=== PATIENT | female | born 1940 | race Caucasian/White ===

== ENCOUNTER 2020-05-04 05:25 | Inpatient (IN) | payer MEDICARE, MEDICAID ==
[~2020-05-04] VITALS: Ht 160 cm; Wt 104.8 kg
[2020-05-04] MEDS ORDERED: RT-HYPERTONIC SALINE 3% 4 ML NEB IH STA (05:45)
[2020-05-04] MEDS ORDERED: RT-epiNEPHrine (RACEMIC) 2.25% 0.5 ML VIAL INH ONE (05:45)
[2020-05-04] MEDS ORDERED: FAMOTIDINE 20MG/2ML IV (PEPCID) IVP ONE (06:15)
--- NOTE | 2020-05-04 06:39 | ED General ---
General Chief Complaint: Allergic Reaction Stated Complaint: POSS ALLERGY REACTION Source of Information: Patient History of Present Illness Date Seen by Provider: May 04, 2020 Time Seen by Provider: 05:30 Initial Comments Patient is a 79-year-old female halfway resident who presents with acute tongue and airway swelling. Symptoms began at 3:00 when patient woke from sleep with a fullness in her mouth and difficulty swallowing water. Symptoms gradually progressed over the past 2 hours and EMS was contacted. Patient given Solu- Medrol, Benadryl and subcutaneous epinephrine per EMS. Patient reports partial improvement of symptoms. She is able to speak, he'll her secretions and is non- stridorous. She is not wheezing, or short of breath. She reports feeling anxious and tremulous from the epinephrine treatment but denies chest pain. Patient has a history of hypertension hypothyroidism and congestive heart failure. Medication list is not available. She denies known medication allergies. No known new food exposures or medications. Timing/Duration: 4-6 Hours Severity: Mild Modifying Factors: improves with Other Associated Systoms: Other Allergies and Home Medications Allergies Coded Allergies: No Known Drug Allergies (Unverified , 05/04/20) Patient Home Medication List Home Medication List Reviewed: Yes Review of Systems Review of Systems Constitutional: see HPI EENTM: see HPI Respiratory: see HPI Cardiovascular: see HPI Gastrointestinal: see HPI Genitourinary: see HPI : Yes Musculoskeletal: see HPI Skin: see HPI Psychiatric/Neurological: See HPI Hematologic/Lymphatic: See HPI Immunological/Allergic: see HPI All Other Systems Reviewed Negative Unless Noted: Yes Past Atdrqat-Iabgnj-Aynsul Hx Past Med/Social Hx: Reviewed Nursing Past Med/Soc Hx Patient Social History Recent Hopitalizations: No Seasonal Allergies Seasonal Allergies: Yes Past Medical History Section Physical Exam Vital Signs Capillary Refill : Height, Weight, BMI Height: '" Weight: lbs. oz. kg; BMI Method: General Appearance: Other Eyes: Bilateral Eye Normal Inspection, Bilateral Eye PERRL, Bilateral Eye EOMI HEENT: PERRL/EOMI, Normal ENT Inspection, Pharynx Normal, Other (lingual and sublingual swelling. No appreciated posterior pharyngeal swelling. Patient able to swallow secretions. Minimal up and face swelling.) Respiratory: Chest Non Tender, Lungs Clear Cardiovascular: Irregularly Irregular, Other Gastrointestinal: Non Tender, Soft Extremity: Pedal Edema Skin: Normal Color Focused Exam Sepsis Stage: Ruled Out Progress/Results/Core Measures Suspected Sepsis SIRS Temperature: Pulse: Respiratory Rate: Blood Pressure / Mean: Results/Orders My Orders Orders - GÓMEZ QURESHI DO Cbc No Diff (05/04/20 05:40) Comprehensive Metabolic Panel (05/04/20 05:40) Rt Epinephrine (Racemic Epinephrine 2.25 (05/04/20 05:45) Hypertonic Saline 3% Neb (Rt-Hypertonic (05/04/20 05:45) Svn Small Volume Nebulizer (05/04/20 05:45) Ekg Tracing (05/04/20 05:53) Magnesium (05/04/20 05:54) Probnp Fs (05/04/20 05:54) Troponin I Fs (05/04/20 05:54) Famotidine Injection (Pepcid Injection) (05/04/20 06:15) Medications Given in ED Current Medications Medications Dose Ordered Sig/Yadiel Route Start Time Stop Time Status Last Admin Dose Admin Epinephrine 0.5 ml ONCE ONCE INH 05/04/20 05:45 05/04/20 05:49 DC 05/04/20 06:11 0.5 ML Famotidine 40 mg ONCE ONCE IVP 05/04/20 06:15 05/04/20 06:16 DC 05/04/20 06:10 40 MG Vital Signs/I&O Capillary Refill : Departure Communication (Admissions) Patient given Pepcid and racemic epinephrine on ED arrival. She is able to maintain her secretions and is non-stridorous. Medication list is not immediately available to reference to identify what may have caused this reaction. Patient will require admission and close observation at [facility]. She is currently stable for transfer by EMS who instructed to have epinephrine available should she experience airway compromise during transportation. Case was reviewed and future treatment plan was discussed in detail with Dr. Sibley on-call physician with FFP to administered after arrival to [place]. Impression Primary Impression: Angioedema Disposition: 01 HOME, SELF-CARE Condition: Stable Admissions Decision to Admit Reason: Admit from ER (General) Decision to Admit/Date: May 04, 2020 Time/Decision to Admit Time: 06:15 Departure-Patient Inst. Decision time for Depature: 06:40 Referrals: FILOMENA CAZARES MD (PCP/Family) Primary Care Physician Patient Instructions: Angioedema (DC) GÓMEZ QURESHI DO May 04, 2020 06:39
[2020-05-04 07:11] LABS: HEMOGLOBIN 11.8 G/DL (11.5-16.0); MEAN PLATELET VOLUME 11.9 FL (7.4-10.4); WHITE BLOOD COUNT 14.8 10^3/uL (4.3-11.0)
[2020-05-04 07:37] LABS: BUN/CREATININE RATIO 24; CARBON DIOXIDE 25 MMOL/L (21-32); CHLORIDE 104 MMOL/L (98-107); CREATININE SERUM 1.61 MG/DL (0.60-1.30); GFR ESTIMATED 31; POTASSIUM 4.2 MMOL/L (3.6-5.0); SODIUM 141 MMOL/L (135-145)
[2020-05-04 07:38] LABS: ALANINE AMINOTRANSFERASE 12 U/L (0-55); ALBUMIN 3.7 GM/DL (3.2-4.5); ALKALINE PHOSPHATASE 95 U/L (40-136); BILIRUBIN,TOTAL 0.4 MG/DL (0.1-1.0); GLUCOSE 144 MG/DL (70-105); MAGNESIUM 1.6 MG/DL (1.6-2.4); TOTAL PROTEIN 6.7 GM/DL (6.4-8.2)
--- NOTE | 2020-05-04 08:02 | Pulmonary Consultation ---
History of Present Illness History of Present Illness Date Seen by Provider: May 04, 2020 Time Seen by Provider: 07:57 Date of Admission Allergies and Home Medications Allergies Coded Allergies: No Known Drug Allergies (Unverified , 05/04/20) Past Liiahyo-Vvhgxg-Icpcwg Hx Past Med/Social Hx: Reviewed Nursing Past Med/Soc Hx Patient Social History Recent Infectious Disease Expo: No Recent Hopitalizations: No Seasonal Allergies Seasonal Allergies: Yes Past Medical History Section Sepsis Event Evaluation Height, Weight, BMI Height: '" Weight: lbs. oz. kg; 34.00 BMI Method: Exam Exam Vital Signs Date Time Temp Pulse Resp B/P (MAP) Pulse Ox O2 Delivery O2 Flow Rate FiO2 05/04/20 06:40 36.9 81 22 140/83 (102) 98 05/04/20 05:38 36.9 81 22 140/83 (102) 98 Nasal Cannula Height & Weight Height: '" Weight: lbs. oz. kg; 34.00 BMI Method: General Appearance: Other HEENT: PERRL/EOMI, Normal ENT Inspection, Pharynx Normal, Other (lingual and sublingual swelling. No appreciated posterior pharyngeal swelling. Patient able to swallow secretions. Minimal up and face swelling.) Respiratory: Chest Non Tender, Lungs Clear Cardiovascular: Irregularly Irregular, Other Capillary Refill: Less Than 3 Seconds Extremity: Pedal Edema Skin: Normal Color Results Lab Laboratory Tests 05/04/20 05:30 Assessment/Plan Assessment/Plan Angioedema -Currently on 2 liters NC -S/p epi, 125 solumedrol, benedryl and pepcid -Will give 2 units of FFP No prior episodes, unknown cause ARF -LR at 125 cc/hr WILLIAM CAO DO May 04, 2020 08:02
[2020-05-04] MEDS ORDERED: EPINEPHrine INJECTION 1 MG/ML AMP IM PRN (08:15)
[2020-05-04] MEDS ORDERED: NS IV 500 ML 500 ML IV SCH (08:15)
--- NOTE | 2020-05-04 08:39 | Diagnostic Imaging Report ---
Clinical indication: Patient with shortness of breath. Exam: Portable chest x-ray upright view. Comparisons: None. Findings: Lungs/pleura: There is minimal atelectasis or scarring in both lung bases. Otherwise, lungs are clear. There is no pneumothorax. There is no pleural effusion. Mediastinum: Unremarkable. Pulmonary vasculature: Unremarkable. Heart: There is mild cardiomegaly. Bones/extrathoracic soft tissue: There are degenerative spurs involving the thoracic spine. Impression: 1: There is mild cardiomegaly with no significant pulmonary vascular congestion. 2: Otherwise, there is no radiographic evidence of acute cardiopulmonary process. There is mild bibasilar atelectasis or scarring. Dictated by: Dictated on workstation # [id number]
[2020-05-04] MEDS ORDERED: FAMOTIDINE 20MG/2ML IV (PEPCID) IVP SCH (09:00)
[2020-05-04] MEDS ORDERED: ALLO100T PO (09:33)
[2020-05-04] MEDS ORDERED: LEVO112T55 PO (09:33)
[2020-05-04] MEDS ORDERED: ATOR20TA66 PO (09:33)
[2020-05-04] MEDS ORDERED: LISI-552 PO (09:33)
[2020-05-04] MEDS ORDERED: ACET-2267 PO (09:33)
[2020-05-04] MEDS ORDERED: VERA80TA4 PO (09:33)
[2020-05-04] MEDS ORDERED: METF-397 PO (09:34)
--- NOTE | 2020-05-04 09:35 | NUR ---
MED REC WAS ENTERED USING THE PHARMACY ORDER FROM [facility] IN [place]. METFORMIN 500MG IS SHOWN ON THE EXT MED HISTORY BUT IS NOT LISTED ON THE MED LIST FROM [facility]- I CALLED THE FACILITY AND WAS TOLD THE PT IS TAKING METFORMIN 500MG BID OF 04-02-2020 AND HER MED LIST HAS NOT BEEN UPDATED TO REFLECT THAT ADDITION
--- NOTE | 2020-05-04 10:22 | History & Physical-Hospitalist ---
YAZMIN LAMAS MED STUDENT 05/04/20 1022: History of Present Illness HPI/Chief Complaint CC: Angioedema, allergic reaction HPI: Rosa Isela is a 79yoWF fpc resident who presented to [place] ED early this morning with facial, throat and tongue swelling, difficulty breathing, and inability to maintain oral secretions. Last night she had diarrh ea around 11 PM and woke up at 3 AM with progressive facial edema, dysphagia and dyspnea which progressed over the next 2 hours until EMS was called by nursing staff. She was given epinephrine, Benadryl and Solumedrol and transferred to [facility] ICU. She continued to receive medications administered in ER and also 2 units of FFP. By mid-morning her swelling has subsided, secretions are maintained and she has no dyspnea. Pt hx includes HTN, CHF, hypothyroidism and gout but she is a poor historian and is not familiar with her medications. Pharmacy will be consulted. Pt denies prior allergic reactions and denies new food, drink, or medication. Cardiology will be consulted to change medication and address possible TYLER inhibitor angioedema. Source: patient Exam Limitations: no limitations Date Seen 05/04/20 Time Seen by a Provider: 08:45 Attending Physician Maria Isabel Sibley Pankaj K MD Referring Physician Date of Admission May 04, 2020 at 07:39 Home Medications & Allergies Home Medications Reviewed patient Home Medication Reconciliation performed by pharmacy medication reconciliations highway traffic control technician and/or nursing. Patients Allergies have been reviewed. Allergies Allergies Coded Allergies No Known Drug Allergies (Unverified05/04/20) Past Aeenigb-Tlkadr-Diqyba Hx Past Med/Social Hx: Reviewed Nursing Past Med/Soc Hx Patient Social History Marrital Status: Number of Children: 3 Employed/Student: retired Alcohol Use: Denies Use (1 twice a year) Recreational Drug Use: No Smoking Status: Former Smoker (20 pack year history quit 30 years ago) Type Used: Cigarettes Recent Foreign Travel: No Contact w/other who traveled: No Recent Hopitalizations: No Recent Infectious Disease Expo: No Seasonal Allergies Seasonal Allergies: Yes Past Medical History Surgeries: Section, Tubal Ligation Cardiac: Hypertension : No Tubal Ligation Musculoskeletal: Gout Endocrine: Hypothyroidsim Hearing Impairment: Denies Family History Cancer (mother had skin cancer), Diabetes (brother has diabetes) Review of Systems Constitutional: No chills, No dizziness, No fever EENTM: mouth swelling, throat pain, throat swelling; No hearing loss Respiratory: see HPI; No short of breath, No stridor, No wheezing Cardiovascular: No chest pain; edema (1+ pitting edema bilaterally) Gastrointestinal: dysphagia; No nausea, No vomiting Genitourinary: No dysuria, No frequency, No hematuria : No Musculoskeletal: gout, joint pain (bilateral hand pain and stiffness) Skin: No pruritus, No rash Physical Exam Physical Exam Vital Signs Vital Signs - First Documented 05/04/20 05:38 Temp 36.9 Pulse 81 Resp 22 B/P (MAP) 140/83 (102) Pulse Ox 98 O2 Delivery Nasal Cannula Capillary Refill : Less Than 3 Seconds Height, Weight, BMI Height: '" Weight: lbs. oz. kg; 34.00 BMI Method: General Appearance: No Apparent Distress, WD/WN; No Anxious Eyes: Bilateral Eye Normal Inspection, Bilateral Eye PERRL HEENT: PERRL/EOMI, Pharynx Normal, Other (mild lingual edema) Neck: Full Range of Motion, Non Tender, Supple Respiratory: Chest Non Tender, Lungs Clear, Normal Breath Sounds, No Accessory Muscle Use, No Respiratory Distress Cardiovascular: No JVD, No Murmur, Normal Peripheral Pulses, Irregularly Irregular Gastrointestinal: No Pulsatile Mass, Non Tender, Soft Back: No CVA Tenderness, No Vertebral Tenderness Extremity: Normal Capillary Refill, No Calf Tenderness, Pedal Edema Neurologic/Psychiatric: Alert, Oriented x3, Normal Mood/Affect Skin: Normal Color, Warm/Dry; No Diaphoresis Lymphatic: No Adenopathy Results Results/Procedures Labs Laboratory Tests 05/04/20 05:30 Patient resulted labs reviewed. Assessment/Plan Assessment and Plan Assessment: Angioedema Acute allergic reaction HTN CHF Gout Plan 05/04/20: Monitor airway Continue Benadryl, Solumedrol and Epinephrine IVF 2 L NC PRN Give 2 units FFP Trial clear liquids and progress if able Diagnosis/Problems Diagnosis/Problems (1) Angioedema Status: Acute (2) HTN (hypertension) (3) CHF (congestive heart failure) (4) Gout (5) Hypothyroidism MARIA ISABEL SIBLEY DO 05/05/20 0616: History of Present Illness HPI/Chief Complaint CC: Angioedema HPI: This is a 79yoWF fpc patient of [facility] who presented at 5:00 this morning at [facility] ER from EMS due to angioedema. She has a history of CHF, and she does take Lisinopril and has for many years but it appears that may be the source of the angioedema. She has responded to Epinephrine, Benadryl, and steroids and currently she is doing much better. I did go ahead and consult cardiology due to the fact that we will have to stop tyler inhibitor and that may very well cause problems with CHF. Past Jjxixtj-Aqdagf-Cxjhfn Hx Past Med/Social Hx: Reviewed Nursing Past Med/Soc Hx, Reviewed and Corrections made Review of Systems Constitutional: see HPI Physical Exam Physical Exam General Appearance: No Apparent Distress HEENT: Other (mild lingual edema) Respiratory: Chest Non Tender, Lungs Clear, Normal Breath Sounds, No Accessory Muscle Use, No Respiratory Distress Cardiovascular: Regular Rate, Rhythm, No Edema, No Gallop, No JVD, No Murmur, Normal Peripheral Pulses Assessment/Plan Admission Diagnosis Assessment: Angioedema severe CHF Debility HTN Plan: Protocol for angioedema Cardiology Pulmo consultation Admission Status: Inpatient Order (span 2 midnights) Reason for Inpatient Admission: angioedema Supervisory-Addendum Brief Verification & Attestation Participated in pt care: history, MDM, physical Personally performed: exam, history, MDM, supervision of care Care discussed with: Medical Student Procedures: n/a Results interpretation: Verified all documentation Verification and Attestation of Medical Student E/M Service A medical student performed and documented this service in my presence. I reviewed and verified all information documented by the medical student and made modifications to such information, when appropriate. I personally performed the physical exam and medical decision making. Maria Isabel Sibley, May 05, 2020,06:16 YAZMIN LAMAS MED STUDENT May 04, 2020 10:22 MARIA ISABEL SIBLEY DO May 05, 2020 06:16
[2020-05-04] MEDS ORDERED: ACETAMINOPHEN 500 MG TAB (TYLENOL) PO PRN (10:30)
--- NOTE | 2020-05-04 11:32 | ST Dysphagia Evaluation ---
Speech Evaluation-General Medical Diagnosis Angioedema Onset Date: May 04, 2020 Therapy Diagnosis Therapy Diagnosis: Oropharyngeal Dysphagia Precautions Precautions: Aspiration Precautions/Isolations: Airborne Isolation, Aspiration Referral Referring Physician: Dr. Sibley Medical History Reviewed History: Yes Social History Current Living Status: Alone Speech PLF/Current-Dysphagia Prior Level of Function Patient lived in her own home where she was independent for her daily needs. Subjective Patient was pleasant and cooperative with the Bedside Dysphagia Evaluation. Oral Motor Skills Dentition: Natural, Tumbled, Stained Ability to Follow Directions: Good Patient was NPO pending BDE. Oral Expression Ability: No Impairment Voice Voice Phonatory-Based Quality: Breathy Voice Pitch: Normal Voice Loudness: Mildly Soft/Quiet Face Facial Symmetry: Symmetrical Oral-Facial Assessment Oral-Facial Dentition: Normal Labial Seal Description: Normal Smile: Normal Lingual Protrusion: Normal Lingual ROM: Normal Lingual Strength: Normal Pharynx Velopharyngeal Move.: Normal Volitional Dry Swallow: Yes Voluntary Cough: Yes Can Clear Throat Volitionally: Yes Dysphagia Evaluation Consistencies Presented: Regular, Thin Liquid, Mechanical Soft, Pureed Oral phase of swallow is within normal range of function with exception of the regular (cracker) which was more difficult due to missing teeth. Pharyngeal phase of swallow is within normal range of function with exception of the regular (cracker) which was with slight delay of swallow onset. Dietary Recommendations: Mechanical Soft Liquid Recommendations: Thin Swallowing Precautions: Alternate Liquids/Solids, Decreased Bolus 1/2 Tsp, Liquids from Straw, Small Bites and Sips, Sitting Upright 90 Degrees, Sitting 90 Degrees 30 Post Intake Dysphagia Evaluation Summary Patient was referred for a BDE due to decline in function. Patient was noted to have tongue swelling, however was able to handle secretions. Patient stated when I entered her room that she felt a lot better. Patient completed the BDE with trials of thin liquids via straw without difficulty. The patient was also given puree, mechanical soft and regular which she tolerated well. The cracker was slightly more difficult regarding bolus management due to being dry. Patient does have several missing teeth which make bolus management difficult. Patient is recommended for a Dysphagia II diet with thin liquids. This information was written on the white board in her room as well as provided to her nurse Mireya. Barriers to Learning Patient's age, health decline Speech-Plan Patient/Family Goals Patient/Family Goals: Patient plans on returning home upon discharge. Treatment Plan Speech Therapy Treatment Plan: Discontinue ST Treatment Duration: May 04, 2020 Frequency: 1 time per week Estimated Hrs Per Day: .25 hour per day Rehab Potential: Good Barriers to Learning: Patient's age, health decline Pt/Family Agrees to Plan: Yes Safety Risks/Education Teaching Recipient: Patient Teaching Methods: Discussion Response to Teaching: Verbalize Understanding Education Topics Provided: Safety with oral intake and diet level Time Speech Therapy Time In: 11:00 Speech Therapy Time Out: 11:20 Total Billed Time: 20 Billed Treatment Time 1, TARIK, DYST TOMMIE Santos May 04, 2020 11:32
[2020-05-04 12:46] LABS: ABG BASE EXCESS -0.7 MMOL/L (-2.5-2.5); ABG OXYGEN SATURATION 97 % (94-100); ABG PCO2 48 MMHG (35-45); ABG PO2 91 MMHG (79-93); ABG TCO2 25.9 MMOL/L (21.0-31.0)
[2020-05-04] MEDS: methylPREDNISolone 40 MG/ML (Solu-MEDROL) VIAL IV SCH ×3 (12:48→22:25)
[2020-05-04 12:49] LABS: ABG PH 7.33 (7.37-7.43)
[2020-05-04] MEDS: diphenhydrAMINE 50 MG/ML INJ (BENADRYL) IVP SCH ×3 (12:49→22:25)
[2020-05-04 12:50] LABS: ALLENS TEST POS; INSPIRED O2 2L; PATIENT TEMP 37; VENTILATOR NO
[2020-05-04] MEDS: ENOXAPARIN 40 MG/0.4 ML (LOVENOX) SYR SC SCH (12:50)
[2020-05-04] MEDS: LACTATED RINGERS 1,000 ML IV SCH ×3 (12:51→22:25)
--- NOTE | 2020-05-04 13:00 | Consultation-Cardiology ---
HPI-Cardiology Cardiology Consultation Date of Consultation 05/04/20 Date of Admission Time Seen by Provider: 12:54 Indication: angioedema HPI 79-year-old lady with history of hypertension, questionable congestive heart failure, woke up at 3 in the morning with progressive facial swelling and swelling of her tongue with dysphagia. Dyspnea, progressed and resulted in her going to the emergency room requiring epinephrine, Solu-Medrol and Benadryl treatment, on my evaluation she is feeling better. Denied any similar episode in the past. She is overall a poor historian, unable to provide full history. she has been on lisinopril as an outpatient. Home Medications & Allergies Allergies: Coded Allergies: No Known Drug Allergies (Unverified , 05/04/20) Home Medication List Reviewed: Yes GHZ-Nzsdro-Obfdcy Hx Patient Social History Marital Status: Number of Children: 3 Employed/Student: retired Recreational Drug Use: No Smoking Status: Former Smoker (20 pack year history quit 30 years ago) Type Used: Cigarettes Recent Hopitalizations: No Family Medical History Significant Family History: Cancer (mother had skin cancer), Diabetes (brother has diabetes) Family Medical Hx noncontributory to her current condition Review of Systems-General Review of Systems Constitutional: see HPI; No chills, No dizziness, No fever EENTM: see HPI, mouth swelling, throat pain, throat swelling; No hearing loss Respiratory: see HPI; No short of breath, No stridor, No wheezing Cardiovascular: see HPI; No chest pain; edema (1+ pitting edema bilaterally) Gastrointestinal: see HPI, dysphagia; No nausea, No vomiting Genitourinary: No dysuria, No frequency, No hematuria : No Musculoskeletal: gout, joint pain (bilateral hand pain and stiffness) Skin: No pruritus, No rash Psychiatric/Neurological: See HPI All Other Systems Reviewed Negative Unless Noted: Yes Reviewed Test Results Reviewed Test Results Lab Laboratory Tests Test 05/04/20 05:30 05/04/20 08:35 05/04/20 12:44 Range/Units White Blood Count 14.8 H 4.3-11.0 10^3/uL Red Blood Count 3.85 L 4.35-5.85 10^6/uL Hemoglobin 11.8 11.5-16.0 G/DL Hematocrit 37 35-52 % Mean Corpuscular Volume 96 80-99 FL Mean Corpuscular Hemoglobin 31 25-34 PG Mean Corpuscular Hemoglobin Concent 32 32-36 G/DL Red Cell Distribution Width 16.9 H 10.0-14.5 % Platelet Count 303 130-400 10^3/uL Mean Platelet Volume 11.9 H 7.4-10.4 FL Sodium Level 141 135-145 MMOL/L Potassium Level 4.2 3.6-5.0 MMOL/L Chloride Level 104 98-107 MMOL/L Carbon Dioxide Level 25 21-32 MMOL/L Anion Gap 12 5-14 MMOL/L Blood Urea Nitrogen 38 H 7-18 MG/DL Creatinine 1.61 H 0.60-1.30 MG/DL Estimat Glomerular Filtration Rate 31 BUN/Creatinine Ratio 24 Glucose Level 144 H 70-105 MG/DL Calcium Level 10.0 8.5-10.1 MG/DL Corrected Calcium 10.2 H 8.5-10.1 MG/DL Magnesium Level 1.6 1.6-2.4 MG/DL Total Bilirubin 0.4 0.1-1.0 MG/DL Aspartate Amino Transf (AST/SGOT) 14 5-34 U/L Alanine Aminotransferase (ALT/SGPT) 12 0-55 U/L Alkaline Phosphatase 95 40-136 U/L Troponin I < 0.30 <0.30 NG/ML Pro-B-Type Natriuretic Peptide 229.4 H <75.0 PG/ML Total Protein 6.7 6.4-8.2 GM/DL Albumin 3.7 3.2-4.5 GM/DL Lactic Acid Level 1.28 0.50-2.00 MMOL/L Blood Gas Puncture Site [facility] RAD Blood Gas Patient Temperature 37 Arterial Blood pH 7.33 *L 7.37-7.43 Arterial Blood Partial Pressure CO2 48 H 35-45 MMHG Arterial Blood Partial Pressure O2 91 79-93 MMHG Arterial Blood HCO3 24 23-27 MMOL/L Arterial Blood Total CO2 25.9 21.0-31.0 MMOL/L Arterial Blood Oxygen Saturation 97 94-100 % Arterial Blood Base Excess -0.7 -2.5-2.5 MMOL/L [place]o Test POS Blood Gas Ventilator Setting NO Blood Gas Inspired Oxygen 2L Physical Exam Physical Exam Vital Signs Vital Signs - First Documented 05/04/20 05:38 Temp 36.9 Pulse 81 Resp 22 B/P (MAP) 140/83 (102) Pulse Ox 98 O2 Delivery Nasal Cannula Capillary Refill : Less Than 3 Seconds Height, Weight, BMI Height: '" Weight: lbs. oz. kg; 34.00 BMI Method: General Appearance: No Apparent Distress, WD/WN; No Anxious Eyes: Bilateral Eye Normal Inspection, Bilateral Eye PERRL, Bilateral Eye EOMI HEENT: PERRL/EOMI, Pharynx Normal, Other (mild lingual edema) Neck: Full Range of Motion, Non Tender, Supple Respiratory: Chest Non Tender, Lungs Clear, Normal Breath Sounds, No Accessory Muscle Use, No Respiratory Distress Cardiovascular: No JVD, No Murmur, Normal Peripheral Pulses, Irregularly Irregular Gastrointestinal: No Pulsatile Mass, Non Tender, Soft Back: No CVA Tenderness, No Vertebral Tenderness Extremity: Normal Capillary Refill, No Calf Tenderness, Pedal Edema Neurologic/Psychiatric: Alert, Oriented x3, Normal Mood/Affect Skin: Normal Color, Warm/Dry; No Diaphoresis Lymphatic: No Adenopathy A/P-Cardiology Admission Diagnosis Angioedema Hypertension Hyperlipidemia Diabetes mellitus Assessment/Plan Angioedema, probably secondary to HOMER inhibitor, it could be any other medication, I recommended this point discontinuation of Homer inhibitor and avoiding Homer inhibitor and/or ARB, restart beta blockers, and monitor tolerance and response. Hypertension, monitor blood pressure after initiating the medication Hyperlipidemia, restart Lipitor and monitor lipids Diabetes mellitus, has been on metformin, managed by primary care physician hypothyroidism, maintained on levothyroxin as an outpatient, managed by primary care physician LUIS HEREDIA MD May 04, 2020 13:00
[2020-05-04] MEDS ORDERED: NS IV 500 ML 500 ML ONE (15:49)
[2020-05-04 16:00] VITALS: BP 156/94
[2020-05-04] MEDS: VERAPAMIL 80 MG (ISOPTIN) TAB PO SCH ×2 (16:10→19:49)
[2020-05-04 18:55] VITALS: BP 156/94
[2020-05-04 21:18] VITALS: BP 141/71
[2020-05-04] MEDS ORDERED: LORazepam INJ 2 MG/ML (ATIVAN) VIAL ONE (22:52)
[2020-05-04] MEDS ORDERED: OLANZapine 5 MG (ZyPREXA) TAB ONE (22:53)
[2020-05-04] MEDS: LORazepam INJ 2 MG/ML (ATIVAN) VIAL IVP PRN (22:57)
[2020-05-04] MEDS ORDERED: OLANZapine 2.5 MG (ZyPREXA) TAB PO ONE (23:00)
--- NOTE | 2020-05-04 23:02 | NUR ---
PT HAS BECOME INCREASINGLY RESTLESS AND CONFUSED SINCE BEGINNING OF SHIFT. DR BURT CONTACTED. ORDERS RECEIVED. SEE ORDER HISTORY.
[2020-05-05] MEDS: LORazepam INJ 2 MG/ML (ATIVAN) VIAL IVP PRN ×2 (01:50→04:00)
[2020-05-05] MEDS: LACTATED RINGERS 1,000 ML IV SCH (01:50)
[2020-05-05 04:07] LABS: BASOPHILS % (AUTO) 0 % (0-10); EOSINOPHILS % (AUTO) 0 % (0-10); HEMATOCRIT 34 % (35-52); HEMOGLOBIN 10.9 g/dL (11.5-16.0); LYMPHOCYTES # (AUTO) 1.2 10^3/uL (1.0-4.0); LYMPHOCYTES % (AUTO) 16 % (12-44); MEAN CORPUSCULAR HEMOGLOBIN 31 pg (25-34); MEAN CORPUSCULAR HGB CONC 32 g/dL (32-36); MEAN CORPUSCULAR VOLUME 96 fL (80-99); MEAN PLATELET VOLUME 11.1 fL (9.0-12.2); MONOCYTES # (AUTO) 0.3 10^3/uL (0.0-1.0); MONOCYTES % (AUTO) 3 % (0-12); NEUTROPHILS # (AUTO) 5.8 10^3/uL (1.8-7.8); NEUTROPHILS % (AUTO) 80 % (42-75); PLATELET COUNT 269 10^3/uL (130-400); WHITE BLOOD COUNT 7.3 10^3/uL (4.3-11.0)
[2020-05-05 04:27] LABS: POTASSIUM 4.5 MMOL/L (3.6-5.0)
[2020-05-05 04:28] LABS: CALCIUM 9.5 MG/DL (8.5-10.1)
[2020-05-05 04:32] LABS: PHOSPHORUS 2.5 MG/DL (2.3-4.7)
[2020-05-05 04:33] LABS: CREATININE SERUM 1.47 MG/DL (0.60-1.30)
[2020-05-05 04:35] LABS: MAGNESIUM 1.8 MG/DL (1.6-2.4)
--- NOTE | 2020-05-05 04:38 | Pulmonary Progress Note ---
Subjective Time Seen by a Provider: 04:32 Subjective/Events-last exam Pt is doing better. Angioedema has resolved. Sepsis Event Evaluation Height, Weight, BMI Height: '" Weight: lbs. oz. kg; 41.79 BMI Method: Focused Exam Lactate Level 05/04/20 08:35: Lactic Acid Level 1.28 Exam Exam Vital Signs Date Time Temp Pulse Resp B/P (MAP) Pulse Ox O2 Delivery O2 Flow Rate FiO2 05/05/20 04:08 36.2 05/05/20 04:00 80 28 139/88 (105) 93 Nasal Cannula 2.00 05/05/20 04:00 95 Nasal Cannula 2.00 05/05/20 03:00 72 20 92 Nasal Cannula 2.00 05/05/20 02:48 36.2 05/05/20 02:00 85 26 90 Nasal Cannula 2.00 05/05/20 01:00 81 28 134/71 (90) 96 Nasal Cannula 2.00 05/05/20 00:46 76 05/05/20 00:00 74 28 132/113 (125) 97 Nasal Cannula 2.00 05/04/20 23:09 36.6 05/04/20 23:05 95 Nasal Cannula 2.00 05/04/20 23:00 76 16 113/96 (100) 95 Nasal Cannula 2.00 05/04/20 22:00 73 22 128/69 (88) 89 Nasal Cannula 2.00 05/04/20 21:18 36.5 98 22 141/71 96 Nasal Cannula 2.00 05/04/20 21:00 92 50 160/122 (135) 92 Nasal Cannula 2.00 05/04/20 20:00 82 12 171/87 (115) 96 Nasal Cannula 2.00 05/04/20 19:59 Nasal Cannula 2.00 05/04/20 19:57 95 Nasal Cannula 2.00 05/04/20 19:43 36.2 05/04/20 19:00 80 05/04/20 19:00 79 16 133/65 (87) 96 Nasal Cannula 2.00 05/04/20 18:55 36.6 76 16 156/94 95 Nasal Cannula 2.00 05/04/20 18:00 89 25 156/94 (114) 90 Nasal Cannula 2.00 05/04/20 17:00 100 27 164/139 (147) 97 Nasal Cannula 2.00 05/04/20 16:28 96 Nasal Cannula 2.00 05/04/20 16:00 95 Nasal Cannula 2.00 05/04/20 16:00 36.6 89 36.6 05/04/20 16:00 92 16 149/76 (100) 97 Nasal Cannula 2.00 05/04/20 15:26 36.4 05/04/20 14:00 108 33 163/99 (120) 91 Nasal Cannula 2.00 05/04/20 13:04 87 05/04/20 12:00 95 Nasal Cannula 2.00 05/04/20 07:47 91 05/04/20 07:45 89 8 144/88 (106) Nasal Cannula 2.00 05/04/20 06:40 36.9 81 22 140/83 (102) 98 05/04/20 05:38 36.9 81 22 140/83 (102) 98 Nasal Cannula I & O 05/05/20 07:00 Intake Total 1752 ml Output Total 1300 ml Balance 452 ml Height & Weight Height: '" Weight: lbs. oz. kg; 41.79 BMI Method: General Appearance: WD/WN, Anxious, Mild Distress HEENT: PERRL/EOMI, Pharynx Normal, Other (mild lingual edema) Neck: Full Range of Motion, Non Tender, Supple Respiratory: Chest Non Tender, Lungs Clear, Normal Breath Sounds, No Accessory Muscle Use, No Respiratory Distress Cardiovascular: No JVD, No Murmur, Normal Peripheral Pulses, Irregularly Irregular Capillary Refill: Less Than 3 Seconds Extremity: Normal Capillary Refill, No Calf Tenderness, Pedal Edema Neurologic/Psychiatric: Alert, Oriented x3, Normal Mood/Affect Skin: Normal Color, Warm/Dry; No Diaphoresis Lymphatic: No Adenopathy Results Lab Laboratory Tests 05/04/20 05:30 05/05/20 03:55 Assessment/Plan Assessment/Plan Angioedema -- Now resolved -Currently on 2 liters NC -S/p epi, 125 solumedrol, benedryl and pepcid -Change Solumedrol to prednisone taper -s/p 2 units of FFP No prior episodes, unknown cause ARF -LR at 125 cc/hr Psychosis -WILLIAM Christina DO May 05, 2020 04:38
[2020-05-05] MEDS ORDERED: LEVOTHYROXINE 112 MCG (LEVOTHROID) TAB PO SCH (06:30)
--- NOTE | 2020-05-05 06:30 | NUR ---
report given to dmitri sabillon. pt transported to room 414.
--- NOTE | 2020-05-05 06:35 | NUR ---
PT ARRIVED TO ROOM 414. REPORT RECEIVED FROM NGHIA HUSAIN. PT INTRODUCED TO SURROUNDINGS. NO COMPLAINTS AT THIS TIME.
[2020-05-05] MEDS ORDERED: predniSONE 20 MG TAB PO SCH (07:00)
--- NOTE | 2020-05-05 08:02 | Diagnostic Imaging Report ---
Indication: Angioedema Upright portable chest shows cardiomegaly. The vascularity being upper normal. No infiltrates or effusions are seen. There is no pneumothorax. IMPRESSION: Stable cardiomegaly. There has been a slight increase in the vascularity since 05/04/2020. Dictated by: Dictated on workstation # [id number]
[2020-05-05] MEDS: ENOXAPARIN 40 MG/0.4 ML (LOVENOX) SYR SC SCH (08:28)
[2020-05-05] MEDS: VERAPAMIL 80 MG (ISOPTIN) TAB PO SCH ×2 (08:47→14:12)
[2020-05-05] MEDS ORDERED: FAMOTIDINE 20 MG (PEPCID) TABLET PO SCH (09:00)
[2020-05-05] MEDS ORDERED: ALLOPURINOL 100 MG (ZYLOPRIM) TAB PO SCH (09:00)
--- NOTE | 2020-05-05 10:33 | Cardiology Progress Note ---
Subjective Date Seen by Provider: May 05, 2020 Time Seen by Provider: 10:00 Subjective/Events-last exam Patient is in bed, no new complaints. Reports edema and dyspnea has improved. Focused Exam Lactate Level 05/04/20 08:35: Lactic Acid Level 1.28 Objective-Cardiology Exam Last Set of Vital Signs Vital Signs 05/05/20 11:45 Temp 36.3 Pulse 73 B/P (MAP) 157/71 (99) Pulse Ox 93 O2 Delivery Room Air Capillary Refill : Less Than 3 Seconds I&O Intake and Output 05/05/20 00:00 Intake Total 1602 ml Output Total 1100 ml Balance 502 ml Intake Oral 740 ml Other 862 ml Output Urine Total 1100 ml # Urine Diapers 2 Daily Weight Change Unsure General: Alert, Oriented X3, Cooperative HEENT: Atraumatic, PERRLA Neck: Supple, No JVD, No Thyromegaly Lungs: Clear to Auscultation, Normal Air Movement Heart: Regular Rate, Normal S1, Normal S2, No Murmurs Abdomen: Normal Bowel Sounds, Soft, No Tenderness, No Hepatosplenomegaly, No Masses Extremities: No Clubbing, No Cyanosis, No Edema, Normal Pulses, No Tenderness/Swelling Skin: No Rashes, No Breakdown, No Significant Lesion Neuro: Normal Gait, Normal Speech, Strength at 5/5 X4 Ext, Normal Tone, Sensation Intact Psych/Mental Status: Mental Status NL, Mood NL Results Lab Laboratory Tests 05/05/20 03:55 A/P-Cardiology Admission Diagnosis Angioedema Hypertension Hyperlipidemia Diabetes mellitus Assessment/Plan Angioedema, probably secondary to HOMER inhibitor, it could be any other medication, I recommended this point discontinuation of Homer inhibitor and avoiding Homer inhibitor and/or ARB, restart home verapamil, and monitor tolerance and response. Hypertension, monitor blood pressure Hyperlipidemia, restart Lipitor and monitor lipids Diabetes mellitus, has been on metformin, managed by primary care physician Hypothyroidism, maintained on levothyroxin as an outpatient, managed by primary care physician Patient was seen and evaluated with Zakia, examination performed, management plan was discussed, agree with the current scribed note, I made few changes to the note using Italic font Patient was seen at bedside, sitting comfortably, ready for discharge Continue on her current medication and arrange for follow-up as an outpatient Monitor blood pressure and lipids ZAKIA SUMMERS May 05, 2020 10:33 LUIS HEREDIA MD May 05, 2020 15:15
[2020-05-05] MEDS ORDERED: FAMO-119 PO (10:43)
[2020-05-05] MEDS ORDERED: DIPH25CA79 PO (10:43)
[2020-05-05] MEDS ORDERED: PRED10TA22 PO (10:43)
--- NOTE | 2020-05-05 10:43 | NUR ---
CM/SS discharge planning. Plan: The patient will return to [facility] in [place] today 05/05. [facility]: CM/SS contacted the facility and spoke with Ariana to inform her of patient's discharge. She verbalized understanding. They do not provide transportation for the patients. Ariana states the patient has a friend who will likely transport the patient back. CM/SS will fax discharge and clinical to the facility. CM/SS attempted to contact the patient's friend Ariana. No answer, voicemail was left with call back number. CM/SS will continue to try and contact the patient's friend for transportation. Addendum: 05/05/20 at 1143 by GUERLINE ROBISON Update: Received call back from Merlene. She is willing and able to sweet pickle maker the patient around 4:30 today. DAXA/SS notified the primary care nurse.
--- NOTE | 2020-05-05 10:44 | Discharge Summary ---
Discharge Summary Hospital Course Was the Problem List Reviewed?: Yes Problems/Dx: (1) Angioedema Status: Acute (2) HTN (hypertension) (3) CHF (congestive heart failure) (4) Gout (5) Hypothyroidism Hospital Course Date of Admission: May 04, 2020 at 07:39 Admission Diagnosis : Family Physician/Provider: Shankar Haas MD Date of Discharge: 05/05/20 Discharge Diagnosis: angioedema, CHF, dementia Hospital Course: Hospital course: Pt had a short hospital course, she was admitted for angioedema, required ICU monitoring and monitoring for airway compromise, she was given steroids, H1 deng and Epinephrine with good results. She also received two units of FFP that seemed to be helpful. Lisinopril was stopped on her home medication list and she was discharged back to assisted-living. Labs and Pending Lab Test: Laboratory Tests 05/04/20 12:44: Blood Gas Puncture Site RGHT RAD, Blood Gas Patient Temperature 37, Arterial Blood pH 7.33*L, Arterial Blood Partial Pressure CO2 48H, Arterial Blood Partial Pressure O2 91, Arterial Blood HCO3 24, Arterial Blood Total CO2 25.9, Arterial Blood Oxygen Saturation 97, Arterial Blood Base Excess -0.7, Rancho Test POS, Blood Gas Ventilator Setting NO, Blood Gas Inspired Oxygen 2L 05/05/20 03:55: White Blood Count 7.3, Red Blood Count 3.55L, Hemoglobin 10.9L, Hematocrit 34L, Mean Corpuscular Volume 96, Mean Corpuscular Hemoglobin 31, Mean Corpuscular Hemoglobin Concent 32, Red Cell Distribution Width 16.2H, Platelet Count 269, Mean Platelet Volume 11.1, Immature Granulocyte % (Auto) 1, Neutrophils (%) (Auto) 80H, Lymphocytes (%) (Auto) 16, Monocytes (%) (Auto) 3, Eosinophils (%) (Auto) 0, Basophils (%) (Auto) 0, Neutrophils # (Auto) 5.8, Lymphocytes # (Auto) 1.2, Monocytes # (Auto) 0.3, Eosinophils # (Auto) 0.0, Basophils # (Auto) 0.0, Immature Granulocyte # (Auto) 0.0, Sodium Level 141, Potassium Level 4.5, Chloride Level 105, Carbon Dioxide Level 23, Anion Gap 13, Blood Urea Nitrogen 28H, Creatinine 1.47H, Estimat Glomerular Filtration Rate 34, BUN/Creatinine Ratio 19, Glucose Level 248H, Calcium Level 9.5, Phosphorus Level 2.5, Magnesium Level 1.8 Home Meds Active Benadryl (Diphenhydramine HCl) 25 Mg Capsule 12.5 Mg PO BID Pepcid (Famotidine) 20 Mg Tablet 20 Mg PO BID Prednisone 10 Mg Tab.ds.pk 10 Mg PO DAILY Take 6 tabs(60mg)daily,decrease by 1 tab(10MG)daily. Reported Metformin HCl 500 Mg Tablet 500 Mg PO BID Tylenol Extra Strength (Acetaminophen) 500 Mg Tablet 1,000 Mg PO Q8H PRN Atorvastatin Calcium 20 Mg Tablet 20 Mg PO HS Levothyroxine Sodium 112 Mcg Tablet 112 Mcg PO DAILY Allopurinol 100 Mg Tablet 100 Mg PO DAILY Verapamil HCl 80 Mg Tablet 80 Mg PO TID Lisinopril 20 Mg Tablet 20 Mg PO DAILY Assessment/Pt Instructions PCP 1 week Discharge Planning: <30 minutes discharge planning Discharge Instructions Discharge Diet: No Restrictions Discharge Physical Examination Vital Signs Vital Signs Date Time Temp Pulse Resp B/P (MAP) Pulse Ox O2 Delivery O2 Flow Rate FiO2 05/05/20 08:00 36.1 93 21 164/77 (106) 95 Nasal Cannula 2.00 General Appearance: No Apparent Distress, WD/WN, Chronically ill Allergies: Coded Allergies: TYLER Inhibitors (Verified Allergy, Severe, Angioedema, 05/04/20) ARB-Angiotensin Receptor Antagonist (Verified Allergy, Severe, Angioedema, 05/04/20) Discharge Summary Date of Admission May 04, 2020 at 07:39 Date of Discharge Discharge Date: May 05, 2020 Admission Diagnosis Assessment: Angioedema severe CHF Debility HTN Plan: Protocol for angioedema Cardiology Pulmo consultation Discharge Diagnosis (1) Angioedema Status: Acute (2) HTN (hypertension) (3) CHF (congestive heart failure) (4) Gout (5) Hypothyroidism MAY BURT DO May 05, 2020 10:44
--- NOTE | 2020-05-05 10:51 | Progress Note ---
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 She was given Benadryl, steroids, epinephrine and transported to [facility] ICU with improved symptoms. Upon arrival she had minimal dyspnea, no wheezing, and was able to maintain oral secretions. 2 units of FFP were administered along with continuation of medications from ER. Cardiology was consulted and recommended discontinuation of ACEI/ARBs as this event was probably secondary to its use. She was moved from ICU to 4th floor where she spent the night and suffered with some anxiety and confusion which was treated with Zyprexa. By the morning of 05/05/20 pt reports no symptoms of angioedema and denies dyspnea, dysphagia, shortness of breath and chest pain. She disconnected herself from IV, telemetry and oxygen, but pt is mobile and stable, ready to return to her long term. Aside from TYLER inhibitor, at home medications including Lipitor, Verapamil, Metformin and Levothyroxin will be continued and monitored by her PCP. MARIA ISABEL BURT DO 05/06/20 0605: Supervisory-Addendum Brief Verification & Attestation Participated in pt care: history, MDM, physical Personally performed: exam, history, MDM, supervision of care Care discussed with: Medical Student Procedures: n/a Results interpretation: Verified all documentation Verification and Attestation of Medical Student E/M Service A medical student performed and documented this service in my presence. I reviewed and verified all information documented by the medical student and made modifications to such information, when appropriate. I personally performed the physical exam and medical decision making. Maria Isabel Burt, May 06, 2020,06:05 YAZMIN LAMAS MED STUDENT May 05, 2020 10:51 MARIA ISABEL BURT DO May 06, 2020 06:05
--- NOTE | 2020-05-05 14:13 | NUR ---
"RD ASSESSMENT PMHx: HTN; gout; hypothyroidism; PT INTERACTION: Pt was awake and pleasant during dietary consult for MST score. Pt states current appetite is okay. Note avg PO intake >75% x2meal, per chart review. Pt states following a regular diet at home, and has some issues with swallowing food. Pt states some recent issues with nausea, vomiting, constipation, and diarrhea, and that her last BM was 05/04. Note pt not currently on bowel regimen per chart review. Pt states recent 30# wt loss, but was unsure of timeframe. Note unable to determine recent wt hx, per chart review. Upon visual assessment, pt appears to very well nourished with no visible signs of muscle/fat wasting, and a BMI of 40.9 (Obese class III for age). Given PO intake, wt hx, and visual assessment, pt does not meet criteria for malnutrition, per ASPEN guidelines. Est. kcal needs: 4421-6577 kcal | 15-18 kcal/kg Est. Pro needs: 84-105 g Pro | 0.8-1.0 g Pro/kg PES STATEMENT: Inadequate oral intake (NI-2.1) related to loss of appetite, nausea, vomiting, constipation, and diarrhea, as evidenced by pt interview. INTERVENTION: Continue with current diet order of DYS2 Mechanically Altered diet. Pt may benefit from nutrition supplementation if PO intake declines. Will continue to follow and reassess as pt needs, intake, and status change. Shakira MARCOS, MS RD LD [phone] cell"
[2020-05-05 17:20] VITALS: BP 157/71
[2020-05-05] MEDS ORDERED: OLANZapine 2.5 MG (ZyPREXA) TAB PO SCH (21:00)
== END 2020-05-05 17:22 | disposition home or self-care (01) | DRG 916 ==
LOC: ER FS 05:36 → ICU 07:39 → 4TH 05-05 06:25
PROVIDERS: ADMIT Internal Medicine; ATTEND Internal Medicine
DX: T78.3XXA Angioneurotic edema, initial encounter (principal); N17.9 Acute kidney failure, unspecified; I11.0 Hypertensive heart disease with heart failure; I50.9 Heart failure, unspecified; E03.9 Hypothyroidism, unspecified; M10.9 Gout, unspecified; F03.90 Unspecified dementia, unspecified severity, without behavioral disturbance, psychotic disturbance, mood disturbance, and anxiety; R53.81 Other malaise; F41.9 Anxiety disorder, unspecified; F29 Unspecified psychosis not due to a substance or known physiological condition; E11.9 Type 2 diabetes mellitus without complications; E78.5 Hyperlipidemia, unspecified
CPT/HCPCS: 36415; 36600; 71045; 80048; 80053; 82805; 83605; 83735; 83880; 84100; 84484; 85025; 85027; 86900; 86901; 87040; 87081; 93005; 93306; G0378

== ENCOUNTER 2022-01-21 01:28 | Emergency (ER) | payer MEDICARE, MEDICAID ==
[~2022-01-21] VITALS: Ht 160 cm; Wt 102.0 kg
[~2022-01-21 01:28] MED LIST: ACET-2267 PO; ALLO100T PO; ATOR20TA66 PO; DIPH25CA79 PO; FAMO-119 PO; LEVO112T55 PO; LISI20TA26 PO; METF-397 PO; PRED10TA22 PO; VERA80TA4 PO
[2022-01-21] MEDS ORDERED: morphine INJ 10 MG/ML 1ML (SYR OR VIAL) IVP STA (01:45)
[2022-01-21] MEDS ORDERED: ONDANSETRON 4 MG/2 ML (SDV) Z0FRAN IVP ONE (01:45)
[2022-01-21] MEDS ORDERED: KETOROLAC 30 MG/ML VIAL IVP ONE (01:45)
[2022-01-21 02:03] LABS: EOSINOPHILS % (AUTO) 4 % (0-10); HEMATOCRIT 35 % (35-52); HEMOGLOBIN 10.6 g/dL (11.5-16.0); LYMPHOCYTES % (AUTO) 25 % (12-44); MEAN CORPUSCULAR HEMOGLOBIN 27 pg (25-34); MEAN CORPUSCULAR HGB CONC 30 g/dL (32-36); MEAN CORPUSCULAR VOLUME 91 fL (80-99); MEAN PLATELET VOLUME 9.8 fL (9.0-12.2); MONOCYTES % (AUTO) 13 % (0-12); NEUTROPHILS % (AUTO) 58 % (42-75); PLATELET COUNT 410 10^3/uL (130-400); WHITE BLOOD COUNT 8.4 10^3/uL (4.3-11.0)
[2022-01-21 02:04] LABS: BASOPHILS # (AUTO) 0.1 10^3/uL (0.0-0.1); BASOPHILS % (AUTO) 1 % (0-10); EOSINOPHILS # (AUTO) 0.4 10^3/uL (0.0-0.3); LYMPHOCYTES # (AUTO) 2.1 X 10^3 (1.0-4.0); MONOCYTES # (AUTO) 1.1 X 10^3 (0.0-1.0); NEUTROPHILS # (AUTO) 4.8 X 10^3 (1.8-7.8)
[2022-01-21] MEDS ORDERED: IPRA3AMP31 IH (02:10)
[2022-01-21] MEDS ORDERED: GLMP1T PO (02:10)
[2022-01-21] MEDS ORDERED: FURO-124 PO (02:10)
[2022-01-21 02:19] LABS: CREATININE SERUM 1.83 MG/DL (0.60-1.30); POTASSIUM 4.3 MMOL/L (3.6-5.0)
[2022-01-21 02:20] LABS: ALBUMIN 3.8 GM/DL (3.2-4.5); BILIRUBIN,TOTAL 0.2 MG/DL (0.1-1.0); CALCIUM 9.9 MG/DL (8.5-10.1); TOTAL PROTEIN 6.8 GM/DL (6.4-8.2)
[2022-01-21] MEDS ORDERED: CATHETER FLUSH 10 ML SYR IV PRN (02:30)
[2022-01-21] MEDS ORDERED: IOHEXOL 350 MG/ML 100 ML (OMNIPAQUE 350) VIAL IV ONE (02:30)
[2022-01-21] MEDS ORDERED: HOLD METFORMIN - RECEIVED CONTRAST 20 ML VIAL IV SCH (02:30)
[2022-01-21] MEDS ORDERED: NS 100 ML (IVPB) BAG IV ONE (02:30)
[2022-01-21 03:21] LABS: BILIRUBIN,URINE NEGATIVE (NEGATIVE); COLOR,URINE YELLOW; GLUCOSE, URINE (UA) NEGATIVE (NEGATIVE); KETONES,URINE NEGATIVE (NEGATIVE); LEUKOCYTE ESTERASE ,URINE 1+ (NEGATIVE); NITRITE,URINE NEGATIVE (NEGATIVE); PH,URINE 5.5 (5-9); PROTEIN,URINE NEGATIVE (NEGATIVE)
[2022-01-21 03:25] LABS: BACTERIA,URINE LARGE /HPF; CLARITY,URINE CLOUDY; WBC,URINE TNTC /HPF
[2022-01-21] MEDS ORDERED: NS IV 1000 ML 1,000 ML IV SCH (04:15)
[2022-01-21] MEDS ORDERED: cefTRIAXone 1 GM PRE-MIX 50 ML IV ONE (04:15)
--- NOTE | 2022-01-21 04:16 | ED Abdominal Pain ---
General Chief Complaint: Abdominal/GI Problems Stated Complaint: RIGHT SIDE PAIN Nursing Triage Note: Pt presents with R side abdominal pain, primarily upper quadrant, does not radiate. Pt report pain started after eating dinner tonight, she went to bed thinking the pain would subside on its own, but it has not. Last BM was 2 days ago, denies urinary difficulty Source of Information: Patient Exam Limitations: No Limitations History of Present Illness Date Seen by Provider: Jan 21, 2022 Time Seen by Provider: 01:40 Initial Comments Patient is a 81-year-old female presents with suprapubic/right lower quadrant pain starting approximately 2 hours after eating dinner tonight. Pain is descri bed as dull moderate to severe worse with palpation. Patient denies fever chills, nausea vomiting or sweats. No flank pain. No urinary frequency urgency or dysuria. No constipation or diarrhea. No other acute symptoms or complaints. Timing/Duration: 1-3 Hours Severity/Quality: Moderate Location: RLQ Radiation: Other Activities at Onset: Other Modifying Factors: Improves With Other Associated Symptoms: Other Allergies and Home Medications Allergies Coded Allergies: TYLER Inhibitors (Verified Allergy, Severe, Angioedema, 05/04/20) ARB-Angiotensin Receptor Antagonist (Verified Allergy, Severe, Angioedema, 05/04/20) Patient Home Medication List Home Medication List Reviewed: Yes Acetaminophen (Tylenol Extra Strength) 500 Mg Tablet, 1,000 MG PO Q8H PRN for PAIN-MILD (1-4), (Reported) Entered as Reported by: MAKENZIE SUTTON on 05/04/20932 Last Action: Reviewed Allopurinol (Allopurinol) 100 Mg Tablet, 100 MG PO DAILY, (Reported) Entered as Reported by: MAKENZIE SUTTON on 05/04/20932 Last Action: Reviewed Atorvastatin Calcium (Atorvastatin Calcium) 20 Mg Tablet, 20 MG PO HS, (Reported) Entered as Reported by: MAKENZIE SUTTON on 05/04/20932 Last Action: Reviewed Furosemide (Lasix) 40 Mg Tablet, 40 MG PO DAILY, (Reported) Entered as Reported by: Emilie Benito on 01/21/22209 Last Action: New Order Glimepiride (Amaryl) 1 Mg Tab, 1 MG PO DAILY, (Reported) Entered as Reported by: Emilie Benito on 01/21/22209 Last Action: New Order Ipratropium/Albuterol Sulfate (Iprat-Albut 0.5-3(2.5) mg/3 ml) 0.5 Mg-3 Mg (2.5 Mg Base)/3 Ml Ampul.neb, 3 ML IH Q6H PRN for SHORTNESS OF BREATH, (Reported) Entered as Reported by: Emilie Benito on 01/21/22 0210 Last Action: New Order Levothyroxine Sodium (Levothyroxine Sodium) 112 Mcg Tablet, 112 MCG PO DAILY, (Reported) Entered as Reported by: MAKENZIE SUTTON on 05/04/20932 Last Action: Reviewed Metformin HCl (Metformin HCl) 500 Mg Tablet, 500 MG PO BID, (Reported) Entered as Reported by: MAKENZIE SUTTON on 05/04/20933 Last Action: Reviewed Verapamil HCl (Verapamil HCl) 80 Mg Tablet, 80 MG PO TID, (Reported) Entered as Reported by: MAKENZIE SUTTON on 05/04/20932 Last Action: Reviewed Discontinued Medications Diphenhydramine HCl (Benadryl) 25 Mg Capsule, 12.5 MG PO BID Discontinued Reason: No Longer Taking Prescribed by: MAY BURT on 05/05/20 104 Last Action: Discontinued Famotidine (Pepcid) 20 Mg Tablet, 20 MG PO BID Discontinued Reason: No Longer Taking Prescribed by: MAY BURT on 05/05/201042 Last Action: Discontinued Prednisone (Prednisone) 10 Mg Tab.ds.pk, 10 MG PO DAILY Discontinued Reason: No Longer Taking Prescribed by: MAY BURT on 05/05/201042 Last Action: Discontinued Review of Systems Review of Systems Constitutional: see HPI EENTM: See HPI Respiratory: See HPI Cardiovascular: See HPI Gastrointestinal: See HPI Genitourinary: See HPI Musculoskeletal: see HPI Skin: see HPI Psychiatric/Neurological: See HPI Endocrine: See HPI All Other Systems Reviewed Negative Unless Noted: No Past Oioqame-Lafpmr-Djylfz Hx Patient Social History Tobacco Use?: No Smoking Status: Never a Smoker Substance use?: No Alcohol Use?: No Pt feels they are or have been: No Immunizations Up To Date Influenza Vaccine Up-to-Date: Yes; Up-to-Date First/Initial COVID19 Vaccinat: 05/25/2020 Second COVID19 Vaccination Albin: 06/22/2020 Third COVID19 Vaccination Date: 04/04/2021 Seasonal Allergies Seasonal Allergies: Yes Past Medical History Section, Tubal Ligation Hypertension 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 oz. kg; 39.00 BMI Method: General Appearance: WD/WN, no apparent distress HEENT: PERRL/EOMI Respiratory: lungs clear Cardiovascular: regular rate, rhythm Gastrointestinal: non tender, soft Back: normal inspection, no CVA tenderness Focused Exam Sepsis Stage: Ruled Out Progress/Results/Core Measures Results/Orders Lab Results Laboratory Tests Test 01/21/22 01:46 01/21/22 03:13 Range/Units White Blood Count 8.4 4.3-11.0 10^3/uL Red Blood Count 3.91 3.80-5.11 10^6/uL Hemoglobin 10.6 L 11.5-16.0 g/dL Hematocrit 35 35-52 % Mean Corpuscular Volume 91 80-99 fL Mean Corpuscular Hemoglobin 27 25-34 pg Mean Corpuscular Hemoglobin Concent 30 L 32-36 g/dL Red Cell Distribution Width 17.5 H 10.0-14.5 % Platelet Count 410 H 130-400 10^3/uL Mean Platelet Volume 9.8 9.0-12.2 fL Neutrophils (%) (Auto) 58 42-75 % Lymphocytes (%) (Auto) 25 12-44 % Monocytes (%) (Auto) 13 H 0-12 % Eosinophils (%) (Auto) 4 0-10 % Basophils (%) (Auto) 1 0-10 % Neutrophils # (Auto) 4.8 1.8-7.8 X 10^3 Lymphocytes # (Auto) 2.1 1.0-4.0 X 10^3 Monocytes # (Auto) 1.1 H 0.0-1.0 X 10^3 Eosinophils # (Auto) 0.4 H 0.0-0.3 10^3/uL Basophils # (Auto) 0.1 0.0-0.1 10^3/uL Sodium Level 142 135-145 MMOL/L Potassium Level 4.3 3.6-5.0 MMOL/L Chloride Level 101 98-107 MMOL/L Carbon Dioxide Level 28 21-32 MMOL/L Anion Gap 13 5-14 MMOL/L Blood Urea Nitrogen 33 H 7-18 MG/DL Creatinine 1.83 H 0.60-1.30 MG/DL Estimat Glomerular Filtration Rate 28 BUN/Creatinine Ratio 18 Glucose Level 155 H 70-105 MG/DL Calcium Level 9.9 8.5-10.1 MG/DL Corrected Calcium 10.1 8.5-10.1 MG/DL Total Bilirubin 0.2 0.1-1.0 MG/DL Aspartate Amino Transf (AST/SGOT) 11 5-34 U/L Alanine Aminotransferase (ALT/SGPT) 9 0-55 U/L Alkaline Phosphatase 109 40-136 U/L Total Protein 6.8 6.4-8.2 GM/DL Albumin 3.8 3.2-4.5 GM/DL Urine Color YELLOW Urine Clarity CLOUDY Urine pH 5.5 5-9 Urine Specific [place] 1.020 1.016-1.022 Urine Protein NEGATIVE NEGATIVE Urine Glucose (UA) NEGATIVE NEGATIVE Urine Ketones NEGATIVE NEGATIVE Urine Nitrite NEGATIVE NEGATIVE Urine Bilirubin NEGATIVE NEGATIVE Urine Urobilinogen 0.2 < = 1.0 MG/DL Urine Leukocyte Esterase 1+ H NEGATIVE Urine RBC (Auto) NEGATIVE NEGATIVE Urine RBC NONE /HPF Urine WBC TNTC H /HPF Urine Crystals NONE /LPF Urine Bacteria LARGE H /HPF Urine Casts NONE /LPF Urine Mucus NEGATIVE /LPF Urine Culture Indicated YES My Orders Orders - GÓMEZ QURESHI DO Cbc With Automated Diff (01/21/22 01:45) Comprehensive Metabolic Panel (01/21/22 01:45) Ua Culture If Indicated (01/21/22 01:45) Ct Abdomen/Pelvis W (01/21/22 01:45) Morphine Injection (Morphine Injection (01/21/22 01:45) Ondansetron Injection (Zofran Injectio (01/21/22 01:45) Ketorolac Injection (Toradol Injection) (01/21/22 01:45) Iohexol Injection (Omnipaque 350 Mg/Ml 1 (01/21/22 02:30) Received Contrast (Hold Metformin- Contr (01/21/22 02:30) Sodium Chloride Flush (Catheter Flush Sy (01/21/22 02:30) Ns (Ivpb) (Sodium Chloride 0.9% Ivpb Bag (01/21/22 02:30) Urine Culture (01/21/22 03:13) Normal Saline Bolus 1,000ml (01/21/22 04:15) Rocephin 1gm/50 Ml Iv (1xdose) (01/21/22 04:15) Medications Given in ED Current Medications Medications Dose Ordered Sig/Yadiel Route Start Time Stop Time Status Last Admin Dose Admin Iohexol 100 ml ONCE ONCE IV 01/21/22 02:30 01/21/22 02:31 DC 01/21/22 02:48 60 ML Ketorolac Tromethamine 30 mg ONCE ONCE IVP 01/21/22 01:45 01/21/22 01:48 DC 01/21/22 01:53 30 MG Ondansetron HCl 4 mg ONCE ONCE IVP 01/21/22 01:45 01/21/22 01:48 DC 01/21/22 01:53 4 MG Sodium Chloride 10 ml NEEDED PRN IV 01/21/22 02:30 01/21/22 02:48 10 ML Sodium Chloride 100 ml ONCE ONCE IV 01/21/22 02:30 01/21/22 02:31 DC 01/21/22 02:48 100 ML Vital Signs/I&O 01/21/22 01:44 Temp 36.3 Pulse 79 Resp 20 B/P (MAP) 180/87 (118) Blood Pressure Mean: 118 Departure Communication (Admissions) CT abdomen pelvis: No acute findings. Lower abdominal pain with findings consistent with acute cystitis. IV fluids and pain medication given. Patient resting comfortably. No vomiting in the ED. Vital signs remained stable throughout the encounter. Recommendations are outpatient treatment, continued supportive care with PCP follow-up. Return precautions reviewed. Patient verbalizes understanding agreement discharge instructions prior to departure. Impression Primary Impression: Abdominal pain Additional Impression: Cystitis Disposition: HOME, SELF-CARE Condition: Stable Departure-Patient Inst. Decision time for Depature: 04:14 Referrals: FILOMENA CAZARES MD (PCP/Family) Primary Care Physician Patient Instructions: Acute Cystitis (DC) Add. Discharge Instructions: You were evaluated in the emergency department for lower abdominal pain. Lab and imaging studies were performed. Your findings are consistent with a bladder infection. Antibiotics and IV fluids were given. Please fill antibiotics and pain medication in the morning and take as directed. Follow-up with your PCP in 2 to 3 days for urine culture results. In the meantime if you develop new or worsening symptoms, return to the emergency department. All discharge instructions reviewed with patient and/or family. Voiced understanding. Scripts Cefdinir (Cefdinir) 300 Mg Capsule 300 MG PO BID, #10 CAP Prov: GÓMEZ QURESHI DO 01/21/22 Phenazopyridine HCl (Pyridium) 100 Mg Tablet 100 MG PO TID, #6 TAB Prov: GÓMEZ QURESHI DO 01/21/22 GÓMEZ QURESHI DO Jan 21, 2022 04:16
[2022-01-21] MEDS ORDERED: CEFD300C3 PO (04:17)
[2022-01-21] MEDS ORDERED: PHEN-639 PO (04:17)
[2022-01-21 05:02] VITALS: BP 157/78
--- NOTE | 2022-01-21 06:19 | Diagnostic Imaging Report ---
PROCEDURE: CT abdomen and pelvis with contrast. TECHNIQUE: Multiple contiguous axial images were obtained through the abdomen and pelvis after administration of intravenous contrast. Auto Exposure Controls were utilized during the CT exam to meet ALARA standards for radiation dose reduction. All CT scans use one or more of the following dose optimizing techniques: automated exposure control, MA and/or KvP adjustment based on patient size and exam type or iterative reconstruction. Indication: Right upper quadrant pain. Comparison: None. Discussion: Lung bases are well-aerated. Normal heart size. No pleural or pericardial fluid. Suspect mild fatty infiltration of the liver. The liver is normal in size. No liver lesion identified. The gallbladder, pancreas, spleen, and adrenal glands are unremarkable. Moderate hiatal hernia is noted. Probably vascular calcifications noted near the right renal hilum. No definite renal stone identified. Benign cysts are noted within the left kidney. No hydronephrosis on either side. The aorta is normal in caliber and contains severe atherosclerotic plaque. The appendix is normal. No constipation or obstruction. Diverticulosis with no secondary evidence for diverticulitis. Uterus and urinary bladder are unremarkable. No ascites or abnormal lymph nodes identified. No acute osseous abnormality identified. 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 Impression: 1. Chronic changes as discussed. No acute abnormality identified. 2. Agree with preliminary report. Dictated by: Dictated on workstation # [id number]
== END 2022-01-21 05:00 | disposition home or self-care (01) ==
LOC: EDUNIT# 01:28 → ER FS 01:32
DX: N30.90 Cystitis, unspecified without hematuria (principal)
CPT/HCPCS: 36415; 74177; 80053; 81000; 85025; 87077; 87088; 87186

== ENCOUNTER 2022-09-26 19:34 | Observation (INO) | payer MEDICARE, MEDICAID ==
[~2022-09-26] VITALS: Ht 165 cm; Wt 95.7 kg
[~2022-09-26 19:34] MED LIST changes: +CEFD300C3 PO; +FURO-124 PO; +GLMP1T PO; +IPRA3AMP31 IH; +PHEN-639 PO
--- NOTE | 2022-09-26 19:42 | ED Dyspnea ---
General Stated Complaint: SOB Source of Information: Patient, EMS Exam Limitations: No Limitations History of Present Illness Date Seen by Provider: Sep 26, 2022 Time Seen by Provider: 19:34 Initial Comments 81-year-old female presents to the emergency department today for shortness of breath. She arrives via EMS from a nursing facility. Nursing staff told EMS that the patient has fallen 3 times today. The patient does not recall falling down. She does endorse some shortness of breath. She states she has some chronic leg swelling but it is significantly worse than it usually is. She denies any fevers chills or cough. No chest pains. She is on Lasix, does not think that she has missed any doses. All other systems reviewed and negative except documented per HPI. Voice recognition software was used to help create this chart Allergies and Home Medications Allergies Coded Allergies: TYLER Inhibitors (Verified Allergy, Severe, Angioedema, 05/04/20) ARB-Angiotensin Receptor Antagonist (Verified Allergy, Severe, Angioedema, 05/04/20) Patient Home Medication List Home Medication List Reviewed: Yes Acetaminophen (Tylenol Extra Strength) 500 Mg Tablet, 1,000 MG PO Q8H PRN for PAIN-MILD (1-4), (Reported) Entered as Reported by: MAKENZIE SUTTON on 05/04/20932 Allopurinol (Allopurinol) 100 Mg Tablet, 100 MG PO DAILY, (Reported) Entered as Reported by: MAKENZIE SUTTON on 05/04/20932 Atorvastatin Calcium (Atorvastatin Calcium) 20 Mg Tablet, 20 MG PO HS, (Reported) Entered as Reported by: MAKENZIE SUTTON on 05/04/20932 Cefdinir (Cefdinir) 300 Mg Capsule, 300 MG PO BID Prescribed by: GÓMEZ QURESHI on 01/21/22416 Furosemide (Lasix) 40 Mg Tablet, 40 MG PO DAILY, (Reported) Entered as Reported by: Emilie Benito on 01/21/22209 Glimepiride (Amaryl) 1 Mg Tab, 1 MG PO DAILY, (Reported) Entered as Reported by: Emilie Benito on 01/21/22209 Ipratropium/Albuterol Sulfate (Iprat-Albut 0.5-3(2.5) mg/3 ml) 0.5 Mg-3 Mg (2.5 Mg Base)/3 Ml Ampul.neb, 3 ML IH Q6H PRN for SHORTNESS OF BREATH, (Reported) Entered as Reported by: Emilie Benito on 01/21/22 0210 Levothyroxine Sodium (Levothyroxine Sodium) 112 Mcg Tablet, 112 MCG PO DAILY, (Reported) Entered as Reported by: MAKENZIE SUTTON on 05/04/20 0933 Metformin HCl (Metformin HCl) 500 Mg Tablet, 500 MG PO BID, (Reported) Entered as Reported by: MAKENZIE SUTTON on 05/04/20 0934 Phenazopyridine HCl (Pyridium) 100 Mg Tablet, 100 MG PO TID Prescribed by: GÓMEZ QURESHI on 01/21/22 0417 Verapamil HCl (Verapamil HCl) 80 Mg Tablet, 80 MG PO TID, (Reported) Entered as Reported by: MAKENZIE SUTTON on 05/04/20 0933 Review of Systems Review of Systems Constitutional: see HPI Past Mzagucg-Rkxesv-Xajbnv Hx Patient Social History Tobacco Use?: No Use of E-Cig and/or Vaping dev: No Substance use?: No Alcohol Use?: No Immunizations Up To Date First/Initial COVID19 Vaccinat: 05/25/2020 Second COVID19 Vaccination Albin: 06/22/2020 Third COVID19 Vaccination Date: 04/04/2021 Seasonal Allergies Seasonal Allergies: Yes Past Medical History Section, Tubal Ligation Hypertension 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 oz. kg; 39.00 BMI Method: General Appearance: No Apparent Distress, WD/WN HEENT: Normal ENT Inspection, Pharynx Normal Neck: Full Range of Motion, Supple Respiratory: Chest Non Tender, Other (Crackles bilateral lung so, worse on the left. Diminished breath sounds bilaterally) Cardiovascular: Regular Rate, Rhythm, No Murmur, Other (3+ pitting edema bilateral lower extremities) Gastrointestinal: No Organomegaly, Non Tender, Soft Extremity: Normal Capillary Refill, Normal Range of Motion, Non Tender, Pedal Edema Neurologic/Psychiatric: Alert, Oriented x3, Normal Mood/Affect Skin: Normal Color, Warm/Dry Progress/Results/Core Measures Results/Orders Lab Results Laboratory Tests Test 09/26/22 19:40 Range/Units White Blood Count 9.4 4.3-11.0 10^3/uL Red Blood Count 3.88 3.80-5.11 10^6/uL Hemoglobin 10.1 L 11.5-16.0 g/dL Hematocrit 34 L 35-52 % Mean Corpuscular Volume 88 80-99 fL Mean Corpuscular Hemoglobin 26 25-34 pg Mean Corpuscular Hemoglobin Concent 29 L 32-36 g/dL Red Cell Distribution Width 20.1 H 10.0-14.5 % Platelet Count 381 130-400 10^3/uL Mean Platelet Volume 10.0 9.0-12.2 fL Immature Granulocyte % (Auto) 0 % Neutrophils (%) (Auto) 67 42-75 % Lymphocytes (%) (Auto) 18 12-44 % Monocytes (%) (Auto) 10 0-12 % Eosinophils (%) (Auto) 4 0-10 % Basophils (%) (Auto) 1 0-10 % Neutrophils # (Auto) 6.3 1.8-7.8 10^3/uL Lymphocytes # (Auto) 1.7 1.0-4.0 10^3/uL Monocytes # (Auto) 1.0 0.0-1.0 10^3/uL Eosinophils # (Auto) 0.3 0.0-0.3 10^3/uL Basophils # (Auto) 0.1 0.0-0.1 10^3/uL Immature Granulocyte # (Auto) 0.0 0.0-0.1 10^3/uL Sodium Level 142 135-145 MMOL/L Potassium Level 3.8 3.6-5.0 MMOL/L Chloride Level 100 98-107 MMOL/L Carbon Dioxide Level 29 21-32 MMOL/L Anion Gap 13 5-14 MMOL/L Blood Urea Nitrogen 36 H 7-18 MG/DL Creatinine 2.06 H 0.60-1.30 MG/DL Estimat Glomerular Filtration Rate 24 BUN/Creatinine Ratio 17 Glucose Level 148 H 70-105 MG/DL Calcium Level 11.5 H 8.5-10.1 MG/DL Troponin I < 0.30 <0.30 NG/ML My Orders Orders - JOANIE,CARMELO L DO Cbc With Automated Diff (09/26/22 19:39) Basic Metabolic Panel (09/26/22 19:39) Troponin I Fs (09/26/22 19:39) Ekg Tracing (09/26/22 19:39) Chest 1 View Ap/Pa Only (09/26/22 19:39) Ed Iv/Invasive Line Start (09/26/22 19:46) Furosemide Injection (Lasix Injection) (09/26/22 20:30) Levofloxacin Tablet (Levaquin Tablet) (09/26/22 20:30) Blood Culture (09/26/22 20:24) Piperacillin Sodium/Tazobactam (Zosyn Vi (09/26/22 20:30) Vital Signs/I&O 09/26/22 19:35 Temp 36.6 Pulse 72 Resp 22 B/P (MAP) 160/63 (95) Pulse Ox 96 O2 Delivery Nasal Cannula O2 Flow Rate 3.00 Departure Communication (Admissions) 2024: Spoke to Dr Ziegler who accepts patient in admission. Patient has HCAP, given single dose zosyn here. She has significant pedal edema, no pulmonary edema. Given single dose IV lasix here. She does have chronically elevatd Cr which is slightly higher than comparison from january. Will need to watch this. Patient admitted in stable condition. Impression Primary Impression: Pedal edema Additional Impressions: HCAP (healthcare-associated pneumonia) Hypoxia Disposition: 30 STILL A PATIENT Condition: Stable Departure-Patient Inst. Referrals: FILOMENA CAZARES MD (PCP/Family) Primary Care Physician CARMELO NAIR DO Sep 26, 2022 19:42
[2022-09-26 19:48] LABS: BASOPHILS # (AUTO) 0.1 10^3/uL (0.0-0.1); BASOPHILS % (AUTO) 1 % (0-10); EOSINOPHILS # (AUTO) 0.3 10^3/uL (0.0-0.3); EOSINOPHILS % (AUTO) 4 % (0-10); HEMATOCRIT 34 % (35-52); HEMOGLOBIN 10.1 g/dL (11.5-16.0); LYMPHOCYTES # (AUTO) 1.7 10^3/uL (1.0-4.0); LYMPHOCYTES % (AUTO) 18 % (12-44); MEAN CORPUSCULAR HEMOGLOBIN 26 pg (25-34); MEAN CORPUSCULAR HGB CONC 29 g/dL (32-36); MEAN CORPUSCULAR VOLUME 88 fL (80-99); MONOCYTES % (AUTO) 10 % (0-12); NEUTROPHILS # (AUTO) 6.3 10^3/uL (1.8-7.8); NEUTROPHILS % (AUTO) 67 % (42-75); PLATELET COUNT 381 10^3/uL (130-400); WHITE BLOOD COUNT 9.4 10^3/uL (4.3-11.0)
--- NOTE | 2022-09-26 19:59 | Diagnostic Imaging Report ---
EXAMINATION: Chest radiograph, portable AP view. DATE: 09/26/2022 7:48 PM INDICATION: 81-year-old female, shortness of breath. COMPARISON: May 05, 2020. FINDINGS: Heart size and mediastinal contours are unchanged. There is no identified pneumothorax. There is no large pleural effusion. There are mild streaky opacities in the left lung base. There is left glenohumeral arthritis. IMPRESSION: 1. Mild streaky opacities in the left lung base which may reflect atelectasis and/or infiltrate. Dictated by: Dictated on workstation # [id number]
[2022-09-26 20:09] LABS: BUN/CREATININE RATIO 17; CALCIUM 11.5 MG/DL (8.5-10.1); CARBON DIOXIDE 29 MMOL/L (21-32); CHLORIDE 100 MMOL/L (98-107); CREATININE SERUM 2.06 MG/DL (0.60-1.30); GFR ESTIMATED 24; GLUCOSE 148 MG/DL (70-105); POTASSIUM 3.8 MMOL/L (3.6-5.0); SODIUM 142 MMOL/L (135-145)
[2022-09-26] MEDS ORDERED: FUROSEMIDE 40 MG/4 ML INJ (LASIX) IVP ONE (20:30)
[2022-09-26] MEDS ORDERED: PIPERACILLIN SODIUM/TAZOBACTAM 4.5 GM in NS (IVPB) 100 ML IV ONE (20:30)
[2022-09-26 23:00] VITALS: BP 146/67
[2022-09-26] MEDS ORDERED: RT-ALBUTEROL/IPRATROPIUM 3 ML (DUONEB) VIAL INH PRN (23:15)
[2022-09-26] MEDS ORDERED: CATHETER FLUSH 10 ML SYR IVP PRN (23:30)
[2022-09-26] MEDS ORDERED: VANCOMYCIN 1 GM/NS 250 ML IVPB IV ONE ×2 (23:45)
[2022-09-27] MEDS ORDERED: VANCOMYCIN 750 MG/NS 250 ML IVPB IV ONE ×2 (00:45)
[2022-09-27 00:49] VITALS: BP 153/72
[2022-09-27] MEDS: RT-ALBUTEROL/IPRATROPIUM 3 ML (DUONEB) VIAL INH SCH ×4 (02:38→21:35)
[2022-09-27] MEDS ORDERED: PIPERACILLIN SODIUM/TAZOBACTAM 4.5 GM in NS (IVPB) 100 ML IV SCH (03:00)
[2022-09-27 03:34] VITALS: BP 140/65
[2022-09-27 05:30] LABS: BASOPHILS # (AUTO) 0.1 10^3/uL (0.0-0.1); BASOPHILS % (AUTO) 1 % (0-10); EOSINOPHILS # (AUTO) 0.3 10^3/uL (0.0-0.3); EOSINOPHILS % (AUTO) 4 % (0-10); HEMATOCRIT 34 % (35-52); HEMOGLOBIN 9.8 g/dL (11.5-16.0); LYMPHOCYTES # (AUTO) 1.7 10^3/uL (1.0-4.0); LYMPHOCYTES % (AUTO) 21 % (12-44); MEAN CORPUSCULAR HEMOGLOBIN 26 pg (25-34); MEAN CORPUSCULAR HGB CONC 29 g/dL (32-36); MEAN CORPUSCULAR VOLUME 88 fL (80-99); MEAN PLATELET VOLUME 10.1 fL (9.0-12.2); MONOCYTES # (AUTO) 0.9 10^3/uL (0.0-1.0); MONOCYTES % (AUTO) 11 % (0-12); NEUTROPHILS % (AUTO) 63 % (42-75); PLATELET COUNT 393 10^3/uL (130-400)
[2022-09-27 05:51] LABS: CALCIUM 10.9 MG/DL (8.5-10.1); CREATININE SERUM 1.94 MG/DL (0.60-1.30); POTASSIUM 3.2 MMOL/L (3.6-5.0)
[2022-09-27 07:34] VITALS: BP 165/92
[2022-09-27] MEDS ORDERED: LEVO125T6 PO (10:03)
[2022-09-27] MEDS ORDERED: ACET-2267 PO (10:03)
[2022-09-27] MEDS ORDERED: FURO40TA4 PO (10:03)
[2022-09-27] MEDS ORDERED: GLIM1TAB4 PO (10:03)
[2022-09-27] MEDS ORDERED: BENZ-36 PO (10:03)
[2022-09-27 12:01] VITALS: BP 160/82
[2022-09-27 15:33] VITALS: BP 138/64
--- NOTE | 2022-09-27 15:37 | History & Physical ---
HPI History of Present Illness: 81 yo F from [facility] that presented to ER with weakness and having 3 falls. Patient states this AM she is not sure why she was sent to the ER and she feels like she is at her baseline. States that she is up ad mo at the [place] and uses a walker sometimes. She does not recall falling yesterday. Denies any pain. Does not have any baseline oxygen need and is on 1-2 LPM currently. Denies any fever or chills. She has felt alittle more short of breath the last few days. Source: patient Exam Limitations: no limitations Date seen by provider: Sep 27, 2022 Time Seen by Provider: 09:45 Attending Physician Shankar Haas MD PCP Admitting Physician: Delonte Ziegler MD Attending Physician: Delonte Ziegler MD Consult Date of Admission Sep 26, 2022 at 22:30 Home Medications Home Medications Reviewed patient Home Medication Reconciliation performed by pharmacy medication reconciliations optoelectronic technician and/or nursing. Patients Allergies have been reviewed. Allergies Coded Allergies: TYLER Inhibitors (Verified Allergy, Severe, Angioedema, 05/04/20) ARB-Angiotensin Receptor Antagonist (Verified Allergy, Severe, Angioedema, 05/04/20) SPY-Jfvrkc-Mzharp Hx Patient Social History Living Status: [facility] Smoking Status: Light Tobacco Smoker Recent Hopitalizations: No Alcohol Use?: No Tobacco type used: Cigarettes Immunizations Up To Date Influenza Vaccine Up-to-Date: Yes; Up-to-Date First/Initial COVID19 Vaccinat: 05/25/2020 Second COVID19 Vaccination Albin: 06/22/2020 Third COVID19 Vaccination Date: 04/04/2021 Past Medical History NIDDM CKD HTN Hypothyroidism Family Medical History Significant Family History: Cancer, Diabetes Review of Systems ([facility]) Constitutional: No chills, No fever; weakness EENTM: no symptoms reported; No mouth pain, No nose congestion, No nose pain Respiratory: cough, dyspnea on exertion Cardiovascular: No chest pain; edema; No palpitations Gastrointestinal: no symptoms reported; No abdominal pain, No constipation, No diarrhea, No nausea, No vomiting Genitourinary: no symptoms reported; No dysuria, No frequency Musculoskeletal: no symptoms reported; No back pain, No joint pain, No muscle pain Skin: no symptoms reported Psychiatric/Neurological: No Symptoms Reported Reviewed Test Results Reviewed Test Results Lab Laboratory Tests Test 09/26/22 19:40 09/27/22 05:05 Range/Units White Blood Count 9.4 8.0 4.3-11.0 10^3/uL Red Blood Count 3.88 3.79 L 3.80-5.11 10^6/uL Hemoglobin 10.1 L 9.8 L 11.5-16.0 g/dL Hematocrit 34 L 34 L 35-52 % Mean Corpuscular Volume 88 88 80-99 fL Mean Corpuscular Hemoglobin 26 26 25-34 pg Mean Corpuscular Hemoglobin Concent 29 L 29 L 32-36 g/dL Red Cell Distribution Width 20.1 H 20.0 H 10.0-14.5 % Platelet Count 381 393 130-400 10^3/uL Mean Platelet Volume 10.0 10.1 9.0-12.2 fL Immature Granulocyte % (Auto) 0 0 % Neutrophils (%) (Auto) 67 63 42-75 % Lymphocytes (%) (Auto) 18 21 12-44 % Monocytes (%) (Auto) 10 11 0-12 % Eosinophils (%) (Auto) 4 4 0-10 % Basophils (%) (Auto) 1 1 0-10 % Neutrophils # (Auto) 6.3 5.0 1.8-7.8 10^3/uL Lymphocytes # (Auto) 1.7 1.7 1.0-4.0 10^3/uL Monocytes # (Auto) 1.0 0.9 0.0-1.0 10^3/uL Eosinophils # (Auto) 0.3 0.3 0.0-0.3 10^3/uL Basophils # (Auto) 0.1 0.1 0.0-0.1 10^3/uL Immature Granulocyte # (Auto) 0.0 0.0 0.0-0.1 10^3/uL Sodium Level 142 144 135-145 MMOL/L Potassium Level 3.8 3.2 L 3.6-5.0 MMOL/L Chloride Level 100 102 98-107 MMOL/L Carbon Dioxide Level 29 30 21-32 MMOL/L Anion Gap 13 12 5-14 MMOL/L Blood Urea Nitrogen 36 H 33 H 7-18 MG/DL Creatinine 2.06 H 1.94 H 0.60-1.30 MG/DL Estimat Glomerular Filtration Rate 24 26 BUN/Creatinine Ratio 17 17 Glucose Level 148 H 90 70-105 MG/DL Calcium Level 11.5 H 10.9 H 8.5-10.1 MG/DL Troponin I < 0.30 <0.30 NG/ML Physical Exam-([facility]) Physical Exam Vital Signs VS - Last 72 Hours, by Label 09/26/22 09/26/22 09/26/22 09/26/22 19:35 21:34 23:00 23:23 Temp 36.6 36.6 Pulse 72 72 72 Resp 22 18 B/P (MAP) 160/63 (95) 146/67 Pulse Ox 96 94 96 93 O2 Delivery Nasal Cannula Nasal Cannula Nasal Cannula O2 Flow Rate 3.00 3.00 2.00 09/27/22 09/27/22 09/27/22 09/27/22 00:18 00:49 02:38 03:34 Temp 36.3 36.3 Pulse 74 75 Resp 17 18 B/P (MAP) 153/72 (99) 140/65 (90) Pulse Ox 93 93 O2 Delivery Nasal Cannula Nasal Cannula Nasal Cannula Nasal Cannula O2 Flow Rate 2.00 3.00 2.00 1.50 FiO2 96 95 09/27/22 09/27/22 09/27/22 09/27/22 07:01 07:34 12:01 14:58 Temp 35.8 36.0 Pulse 77 85 Resp 16 16 B/P (MAP) 165/92 (116) 160/82 (108) Pulse Ox 91 92 O2 Delivery Nasal Cannula Nasal Cannula Nasal Cannula O2 Flow Rate 1.50 1.50 1.50 1.50 FiO2 92 92 Capillary Refill : Less Than 3 Seconds General Appearance: WD/WN, no apparent distress HEENT: PERRL/EOMI Neck: non-tender, full range of motion Respiratory: chest non-tender, lungs clear, normal breath sounds, no r espiratory distress, no accessory muscle use Cardiovascular: normal peripheral pulses, regular rate, rhythm, no murmur Gastrointestinal: normal bowel sounds, non tender, soft Back: no CVA tenderness, no vertebral tenderness Extremities: no calf tenderness, pedal edema (2-3+ pitting edema equal b ilaterally) Neurologic/Psychiatric: referral coordinator II-XII nml as tested, alert Skin: normal color, warm/dry Lymphatic: no adenopathy Assessment/Plan Assessment/Plan Admission Status: Observation (1) HCAP (healthcare-associated pneumonia) Status: Acute Assessment & Plan: - Started on IV AB, titrate oxygen as tolerated, MAT protocol (2) Hypoxia Status: Acute (3) Acute on chronic renal failure Status: Acute Assessment & Plan: - Baseline 1.8-1.9, Continue to monitor with gentle hydration (4) Non-insulin dependent diabetes mellitus Status: Chronic Assessment & Plan: - restart home meds, Accucheck ACHS (5) HTN (hypertension) Status: Chronic Assessment & Plan: - restart home meds Qualifiers: Qualified Codes: I10 - Essential (primary) hypertension (6) Hypothyroidism Status: Chronic Assessment & Plan: - restart home meds Qualifiers: Qualified Codes: E03.9 - Hypothyroidism, unspecified (7) Gout Status: Chronic (8) Hypokalemia Status: Acute Assessment & Plan: - replace and repeat BMP in AM (9) Physical debility Status: Acute Assessment & Plan: - PT (10) DVT prophylaxis Status: Acute Assessment & Plan: - DELONTE Paez MD Sep 27, 2022 15:37
[2022-09-27] MEDS ORDERED: ENOXAPARIN 40 MG/0.4 ML (LOVENOX) SYR SQ SCH (15:45)
[2022-09-27] MEDS: ENOXAPARIN INJECTION 30 MG/0.3 ML SYR SC SCH (16:38)
[2022-09-27 19:18] VITALS: BP 148/68
[2022-09-27] MEDS: CEFDINIR 300 MG (OMNICEF) CAP PO SCH (20:04)
[2022-09-27] MEDS: VERAPAMIL 80 MG (ISOPTIN) TAB PO SCH (20:04)
[2022-09-28 00:13] VITALS: BP 147/65
[2022-09-28 03:04] VITALS: BP 147/65
[2022-09-28 03:54] VITALS: BP 145/64
[2022-09-28] MEDS ORDERED: LEVOTHYROXINE 125 MCG (LEVOTHROID) TABLET PO SCH (06:30)
[2022-09-28] MEDS ORDERED: GLIMEPIRIDE 1 MG (AMARYL) TAB PO SCH (07:00)
[2022-09-28] MEDS: RT-ALBUTEROL/IPRATROPIUM 3 ML (DUONEB) VIAL INH SCH ×2 (07:16→14:36)
[2022-09-28 07:34] VITALS: BP 135/77
[2022-09-28] MEDS: VERAPAMIL 80 MG (ISOPTIN) TAB PO SCH ×2 (08:43→13:21)
[2022-09-28] MEDS: CEFDINIR 300 MG (OMNICEF) CAP PO SCH (08:44)
[2022-09-28] MEDS ORDERED: ALLOPURINOL 100 MG (ZYLOPRIM) TAB PO SCH (09:00)
[2022-09-28] MEDS ORDERED: FUROSEMIDE 40 MG (LASIX) TAB PO SCH (09:00)
[2022-09-28] MEDS ORDERED: TROUGH ORDER-PHARMACY XX ONE (11:00)
--- NOTE | 2022-09-28 11:31 | Discharge Summary ---
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) See Comments Home Meds Active Reported Benzonatate 100 Mg Capsule 100 Mg PO Q8H PRN Tylenol Extra Strength (Acetaminophen) 500 Mg Tablet 1,000 Mg PO Q8H PRN Glimepiride 1 Mg Tablet 1 Mg PO DAILY W/MEAL Furosemide 40 Mg Tablet 40 Mg PO DAILY Levothyroxine Sodium 125 Mcg Tablet 125 Mcg PO DAILY Iprat-Albut 0.5-3(2.5) mg/3 ml (Ipratropium/Albuterol Sulfate) 0.5 Mg-3 Mg (2.5 Mg Base)/3 Ml Ampul.neb 3 Ml IH Q6H PRN Metformin HCl 500 Mg Tablet 500 Mg PO BID WITH MEALS Atorvastatin Calcium 20 Mg Tablet 20 Mg PO HS Allopurinol 100 Mg Tablet 100 Mg PO DAILY Verapamil HCl 80 Mg Tablet 80 Mg PO TID Skilled NF Admit to: Certification (SNF) I certify that SNF services are required to be given on an inpatient basis because of the above named patient's need for usp care on a continuing basis for the conditions(s) for which he/she was receiving inpatient hospital services prior to his/her transfer to the SNF. Group Home Facility Order: Nursing Services, Physical Therapy-Evaluate & Treat Oxygen Delivery Method: Nasal Cannula (2LPM) Discharge Diet: ADA Diet Daily Activity as Tolerated: Yes Delonte Ziegler Sep 28, 2022 11:29 Discharge Physical Exam General: Alert, Oriented X3, No Acute Distress Lungs: Clear to Auscultation, Normal Air Movement Heart: Regular Rate, No Murmurs Abdomen: Normal Bowel Sounds, Soft, No Tenderness, No Masses Extremities: No Tenderness/Swelling, Other (2+ pitting edema bilaterally) Neuro: Normal Speech, Cranial Nerves 3-12 NL Psych/Mental Status: Mental Status NL, Mood NL DELONTE ZIEGLER MD Sep 28, 2022 11:31
[2022-09-28] MEDS ORDERED: CEFD300C3 PO (11:32)
[2022-09-28] MEDS ORDERED: VANCOMYCIN 1250MG/250ML PREMIX 250 ML IV SCH (12:00)
[2022-09-28 12:09] VITALS: BP 146/67
--- NOTE | 2022-09-28 15:04 | Physical Therapy Evaluation ---
PT Evaluation-General Medical Diagnosis Admission Date Sep 26, 2022 at 22:30 Medical Diagnosis: HCAP, Weakness, Falls Onset Date: Sep 27, 2022 Therapy Diagnosis Therapy Diagnosis: Gait deficit Precautions Precautions/Isolations: Fall Prevention, Standard Precautions Weight Bear Status Right Lower Extremity: Right Full Weight Bearing Left Lower Extremity: Left Full Weight Bearing Referral Physician: Dr. Ziegler Reason for Referral: Evaluation/Treatment Medical History Reviewed History: Yes Social History Home: Assisted Living Current Living Status: Alone Entry Into Home: Level Entry Prior Prior Level of Function SCALE: Activities may be completed with or without assistive devices. 8-Nbrvduhtkr-fjfpfln completes the activity by him/herself with no assistance from a helper. 5-Set-up or Clean-up Assistance-helper sets up or cleans up; patient completes activity. [place] assists only prior to or following the activity. 4-Supervision or Touching Assistance-helper provides verbal cues and/or touching/steadying and/or contact guard assistance as patient completes activity. Assistance may be provided throughout the activity or intermittently. 3-Partial/Moderate Assistance-helper does LESS THAN HALF the effort. [place] li fts, holds or supports trunk or limbs, but provides less than half the effort. 2-Substantial/Maximal Assistance-helper does MORE THAN HALF the effort. [place] lifts or holds trunk or limbs and provides more than half the effort. 9-Nymzlqauh-bxlymi does ALL the effort. Patient does none of the effort to complete the activity. Or, the assistance of 2 or more helpers is required for the patient to complete the activity. If activity was not attempted, code reason: 7-Patient Refused. 9-Not Applicable-not attempted and the patient did not perform the activity before the current illness, exacerbation or injury. 10-Not Attempted due to Environmental Limitations-(lack of equipment, weather restraints, etc.). 88-Not Attempted due to Medical Conditions or Safety Concerns. Bed Mobility: 6 Transfers (B,C,W/C): 6 Gait: 6 Indoor Mobility (Ambulation): Independent Prior Devices Use: Walker PT Evaluation-Current Subjective Patient lying supine in bed upon PT arrival, agreeable to treatment. Patient reports no pain at this time. Objective Patient Orientation: Person Attachments: Oxygen ROM/Strength ROM Lower Extremities WFLS BLEs all planes. Strength Lower Extremities 3+/5 BLEs all planes Sensory Vision: Wears Glasses Hearing: Impaired Sensation Right Lower Extremit: Intact Sensation Left Lower Extremity: Intact Transfers Roll Left to Right (QC): 4 Sit to Lying (QC): 4 Lying to Sitting/Side of Bed(Q: 4 Sit to Stand (QC): 3 Chair/Hmp-qf-Qlzvg Xfer(QC): 3 Gait Does the Patient Walk?: Yes Mode of Locomotion: Walk Anticipated Mode of Locomotion: Walk Walk 10 feet (QC): 4 Walk 50 ft with 2 Turns(QC): 4 Distance: 100' Gait Assistive Device: FWW Balance Sitting Static: Fair Sitting Dynamic: Fair Standing Static: Fair Standing Dynamic: Fair Assessment/Needs Patient tolerate treatment fair. Respiratory therapist in room assessing for O2 needs. Patient on 2 L in bed, increased to 3 L by RT for activity. Patient ambulates 100 feet with FWW, with CGA, verbal cues for safety, progression. Patient ambulates with forward trunk posture, rounded shoulders, head down posture. Patient in chair post treatment with all needs met, nursing notified, call light in hand. Rehab Potential: Fair PT Nursing Home Goals Nursing Home Goals PT Ibm Mainframe Developer Goals Time Frame: Oct 20, 2022 Roll Left & Right (QC): 6 Sit to Lying (QC): 6 Lying-Sitting on Side/Bed(QC): 6 Sit to Stand (QC): 6 Chair/Cku-wj-Kfddy Xfer(QC): 6 Toilet Transfer (QC): 6 Does the Patient Walk: Yes Walk 10 feet (QC): 6 Walk 50ft with 2 Turns (QC): 6 Walk 150 ft (QC): 4 PT Plan Problem List Problem List: Activity Tolerance, Functional Strength, Safety, Balance, Gait, Transfer, Bed Mobility, ROM Treatment/Plan Treatment Plan: Continue Plan of Care Treatment Plan: Bed Mobility, Education, Functional Activity [place], Functional Strength, Group Therapy, Gait, Safety, Therapeutic Exercise, Transfers Treatment Duration: Oct 20, 2022 Frequency: 6 times per week Estimated Hrs Per Day: .25 hour per day Safety Risks/Education Patient Education: Gait Training, Transfer Techniques Teaching Recipient: Patient Teaching Methods: Demonstration, Discussion Response to Teaching: Verbalize Understanding, Return Demonstration Time Time In: 1425 Time Out: 1445 DATE: Sep 28, 2022 Total Billed Treatment Time: 20 Total Billed Treatment Visit, SHLOMO CHING PT Sep 28, 2022 15:04
[2022-09-28 15:36] VITALS: BP 164/67
[2022-09-28] MEDS: ENOXAPARIN INJECTION 30 MG/0.3 ML SYR SC SCH (16:29)
== END 2022-09-28 11:31 ==
LOC: EDUNIT# 19:34 → ER FS 19:35 → 4TH 22:30 → UNDOADMOB 22:30 → 4TH 22:39 → UNDODISOB 09-28 11:31
PROVIDERS: ADMIT Family Medicine; ATTEND Family Medicine
DX: J18.9 Pneumonia, unspecified organism (principal); R09.02 Hypoxemia; E11.22 Type 2 diabetes mellitus with diabetic chronic kidney disease; I12.9 Hypertensive chronic kidney disease with stage 1 through stage 4 chronic kidney disease, or unspecified chronic kidney disease; N18.9 Chronic kidney disease, unspecified; N17.9 Acute kidney failure, unspecified; E03.9 Hypothyroidism, unspecified; E87.6 Hypokalemia; R53.81 Other malaise; M10.9 Gout, unspecified; F17.210 Nicotine dependence, cigarettes, uncomplicated; Z79.890 Hormone replacement therapy; Z79.899 Other long term (current) drug therapy; Z79.84 Long term (current) use of oral hypoglycemic drugs
CPT/HCPCS: 36415; 71045; 80048 ×2; 84484; 85025 ×2; 87040; 87077; 87186; 93005; 94640 ×2; 94664; 94760 ×2; 94761; 96366 ×2; 96372 ×2; 96376; 97162; 99284; G0378